=== PATIENT | male | born 1985 | race Caucasian/White ===

== ENCOUNTER 2017-04-06 13:35 | Emergency (ER) | payer OTHER ==
[2017-04-06 13:39] VITALS: BP_SYST 139; BP_SYST 171; BP_DIAS 65; BP_DIAS 85; PULSE 76; PULSE 99; RESP 17; TEMP 98.4; O2SAT 97
--- NOTE | 2017-04-06 13:51 | PD ---
HPI Chief Complaint: Chest Pain Time Seen by Provider: 13:51 Travel History International Travel<30 days: No Contact w/Intl Traveler<30days: No Traveled to known affect area: No History of Present Illness HPI 32-year-old male came to the emergency room with history of left-sided chest pain for past 5 days. Patient says that the intensity is slowly worsening. The pain has been there continuously. It's a sharp and a squeezing chest pain. No radiation of the pain and no aggravating or relieving factors identified. 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 Patient says he has had a cough for past week and a half but no fever or chills. He's been producing some yellowish phlegm. Patient is not a smoker. No recent long distance travel, surgery or procedures. His vital signs are stable. [facility] Past Medical History Narrative Medical List of his past medical, surgical, social and family history is reviewed from the nursing note. Social History Tobacco Use: No Allergies-Medications (Allergen,Severity, Reaction): Coded Allergies: No Known Allergies (Unverified , 04/06/17) Comments No known drug allergies Reported Meds & Prescriptions Reported Meds & Active Scripts Active Ibuprofen 800 Mg Tab 800 Mg PO Q6HR PRN Reported Istalol Opth Drops (Timolol Opth Drops) 0.5 % Soln 1 Drop LEFT EYE BID Narrative Medication List of his home medications reviewed from the nursing note. Review of Systems Except as stated in HPI: all other systems reviewed are Neg Physical Exam Narrative GENERAL: Awake, alert, morbidly obese, mild distress SKIN: Focused skin assessment warm/dry. HEAD: Atraumatic. Normocephalic. EYES: Pupils equal and round. No scleral icterus. No injection or drainage. ENT: No nasal bleeding or discharge. Mucous membranes pink and moist. NECK: Trachea midline. No JVD. CARDIOVASCULAR: Regular rate and rhythm. No murmur appreciated. RESPIRATORY: No accessory muscle use. Clear to auscultation. Breath sounds equal bilaterally. GASTROINTESTINAL: Abdomen soft, non-tender, nondistended. Hepatic and splenic margins not palpable. MUSCULOSKELETAL: No obvious deformities. No clubbing. No cyanosis. No edema. NEUROLOGICAL: Awake and alert. No obvious cranial nerve deficits. Motor grossly within normal limits. Normal speech. PSYCHIATRIC: Appropriate mood and affect; insight and judgment normal. Data Data Last Documented VS Vital Signs Date Time Temp Pulse Resp B/P Pulse Ox O2 Delivery O2 Flow Rate FiO2 04/06/17 13:39 98.4 99 17 171/85 97 Orders Electrocardiogram (04/06/17 13:59) Basic Metabolic Panel (Bmp) (04/06/17 13:59) Ckmb (Isoenzyme) Profile (04/06/17 13:59) Complete Blood Count With Diff (04/06/17 13:59) Magnesium (Mg) (04/06/17 13:59) Prothrombin Time / Inr (Pt) (04/06/17 13:59) Act Partial Throm Time (Ptt) (04/06/17 13:59) Troponin I (04/06/17 13:59) Chest, Single Ap (04/06/17 13:59) Ecg Monitoring (04/06/17 13:59) Bilateral Bp Monitoring (04/06/17 13:59) Iv Access Insert/Monitor (04/06/17 13:59) Oximetry (04/06/17 13:59) Oxygen Administration (04/06/17 13:59) Sodium Chloride 0.9% Flush (Ns Flush) (04/06/17 14:00) D-Dimer (04/06/17 14:40) Labs Laboratory Tests Test 04/06/17 14:40 White Blood Count 9.8 TH/MM3 Red Blood Count 5.24 MIL/MM3 Hemoglobin 15.6 GM/DL Hematocrit 45.5 % Mean Corpuscular Volume 86.8 FL Mean Corpuscular Hemoglobin 29.8 PG Mean Corpuscular Hemoglobin 34.3 % Concent Red Cell Distribution Width 13.3 % Platelet Count 248 TH/MM3 Mean Platelet Volume 9.3 FL Neutrophils (%) (Auto) 59.3 % Lymphocytes (%) (Auto) 24.2 % Monocytes (%) (Auto) 10.2 % Eosinophils (%) (Auto) 4.7 % Basophils (%) (Auto) 1.6 % Neutrophils # (Auto) 5.8 TH/MM3 Lymphocytes # (Auto) 2.4 TH/MM3 Monocytes # (Auto) 1.0 TH/MM3 Eosinophils # (Auto) 0.5 TH/MM3 Basophils # (Auto) 0.2 TH/MM3 CBC Comment DIFF FINAL Differential Comment Prothrombin Time 11.0 SEC Prothromb Time International 1.0 RATIO Ratio Activated Partial 25.9 SEC Thromboplast Time D-Dimer Quantitative (PE/DVT) 0.38 MG/L FEU Sodium Level 141 MEQ/L Potassium Level 4.2 MEQ/L Chloride Level 106 MEQ/L Carbon Dioxide Level 28.1 MEQ/L Anion Gap 7 MEQ/L Blood Urea Nitrogen 9 MG/DL Creatinine 0.65 MG/DL Estimat Glomerular Filtration 141 ML/MIN Rate Random Glucose 91 MG/DL Calcium Level 8.6 MG/DL Magnesium Level 2.2 MG/DL Total Creatine Kinase 76 U/L Troponin I LESS THAN 0.02 NG/ML MDM Medical Decision Making Medical Screen Exam Complete: Yes Emergency Medical Condition: Yes Medical Record Reviewed: Yes Interpretation(s) Twelve-lead EKG was reviewed by me. Normal sinus rhythm, normal axis, PVCs, nonspecific ST-T wave changes. Heart rate of 86 bpm. Differential Diagnosis ACS, PE, non-STEMI, nonspecific chest Narrative Course 2:22 PM awaiting for the blood test results to come back. Patient did not want anything for pain at this point. 4:18 PM blood test results of back and within normal limit. Given the fact that patient has continuous pain for past 5 days I am comfortable with one set of negative troponin. I will discharge him home at this point. Procedures EKG Prior to Arrival: No Diagnosis Primary Impression: Atypical chest pain Referrals: Primary Care Physician Additional Instructions: Please return to the ER if the condition worsens or any other new concerns. Take the medication as per the prescription direction. Follow-up with your primary care in couple days. Med/Other Pt SpecificInfo: Prescription(s) given Scripts Ibuprofen 800 Mg [id number] Mg PO Q6HR PRN (PAIN) #40 TAB Ref 0 Prov:Roberto Carlos Montelongo MD 04/06/17 Disposition: 01 DISCHARGE HOME Condition: Stable Roberto Carlos Montelongo MD Apr 06, 2017 13:51 Roberto Carlos Montelongo MD Apr 06, 2017 13:51
[2017-04-06] MEDS ORDERED: ISTA0.5S LEFT EYE (13:57)
[2017-04-06] MEDS ORDERED: SODIUM CHLORIDE 0.9% FLUSH 10 ML FLUSH IVF PRN (14:00)
[2017-04-06 15:23] LABS: AUTOMATED NEUTROPHIL # 5.8 TH/MM3 (1.8-7.7); BASOPHIL # 0.2 TH/MM3 (0-0.2); BASOPHIL % 1.6 % (0.0-2.0); EOSINOPHIL # 0.5 TH/MM3 (0-0.4); EOSINOPHIL % 4.7 % (0.0-4.0); HEMATOCRIT 45.5 % (39.0-51.0); HEMO FLAGS DIFF FINAL; LYMPH % 24.2 % (9.0-44.0); LYMPHOCYTE # 2.4 TH/MM3 (1.0-4.8); MEAN CELL VOLUME 86.8 FL (80.0-100.0); MEAN CORPUSCULAR HEMOGLOBIN 29.8 PG (27.0-34.0); MEAN CORPUSCULAR HGB CONC 34.3 % (32.0-36.0); MONO % 10.2 % (0.0-8.0); NEUT % 59.3 % (16.0-70.0); PLATELET COUNT 248 TH/MM3 (150-450); RED BLOOD COUNT 5.24 MIL/MM3 (4.50-5.90); RED CELL DISTRIBUTION WIDTH 13.3 % (11.6-17.2); WHITE BLOOD COUNT 9.8 TH/MM3 (4.0-11.0)
[2017-04-06 15:31] LABS: ANION GAP 7 MEQ/L (5-15); BICARBONATE 28.1 MEQ/L (21.0-32.0); BLOOD UREA NITROGEN 9 MG/DL (7-18); CHLORIDE 106 MEQ/L (98-107); GLOMERULAR FILTRATION RATE 141 ML/MIN (>89); MAGNESIUM 2.2 MG/DL (1.5-2.5); POTASSIUM 4.2 MEQ/L (3.5-5.1); SODIUM (NA) 141 MEQ/L (136-145)
[2017-04-06 15:38] LABS: CREATINE KINASE 76 U/L (39-308)
--- NOTE | 2017-04-06 15:42 | RADRPT ---
EXAM DATE/TIME: 04/06/2017 14:17 [facility] COMPARISON: No previous studies available for comparison. INDICATIONS : Chest pain for three days. MEDICAL HISTORY : None. SURGICAL HISTORY : None. ENCOUNTER: Initial ACUITY: 3 days PAIN SCORE: 4/10 LOCATION: Left chest FINDINGS: Portable AP view of the chest demonstrates a normal-sized cardiac silhouette. No effusion, consolidat ion, or pneumothorax is visualized. The bones and soft tissues demonstrate no acute abnormality. CONCLUSION: No acute cardiopulmonary abnormality is identified. Good Solomon MD on April 06, 2017 at 15:39 Board Certified Radiologist. This report was verified electronically.
[2017-04-06 16:06] LABS: APTT (PATIENT) 25.9 SEC (24.3-30.1)
[2017-04-06] MEDS ORDERED: IBUP800T23 PO (16:19)
--- NOTE | 2017-04-06 18:18 | EKG ---
Date Performed: 04/06/2017 Time Performed: 13:53:21 PTAGE: 32 years EKG: Sinus rhythm WITH FREQUENT SUPRAVENTRICULAR PREMATURE COMPLEXES MODERATE INTRAVENTRICULAR CONDUCTION DELAY ABNORM AL RHYTHM ECG Compared to prior electrocardiogram premature atrial contractions are now present. PREVIOUS TRACING : 01/17/2002 06.51 DOCTOR: Darian Jordan Interpretating Date/Time 04/06/2017 18:17:27
== END 2017-04-06 16:51 | disposition home or self-care (01) ==
LOC: NEPC 13:35
DX: R07.89 Other chest pain (principal); R94.31 Abnormal electrocardiogram [ECG] [EKG]; R05 Cough
CPT/HCPCS: 71010; 80048; 82550; 83735; 84484; 85025; 85379; 85610; 85730; 93005; 99285